=== PATIENT | female | born 1990 ===

== ENCOUNTER 2022-07-16 11:09 | Outpatient (CLI) | payer OTHER | END 2022-07-16 11:16 | disposition home or self-care (01) | LOC: SONOGRAMA 11:09 | PROVIDERS: ATTEND Obstetrics & Gynecology Gynecology | DX: Z12.31 Encounter for screening mammogram for malignant neoplasm of breast (principal); N63.0 Unspecified lump in unspecified breast; N64.4 Mastodynia; N60.11 Diffuse cystic mastopathy of right breast ==

== ENCOUNTER 2023-12-03 10:15 | Outpatient (CLI) | payer OTHER | END 2023-12-03 10:24 | disposition home or self-care (01) | LOC: SONOGRAMA 10:15 | DX: Y92.538 Other ambulatory health services establishments as the place of occurrence of the external cause (principal); R92.30 Dense breasts, unspecified ==